=== PATIENT | female | born 1960 | race Caucasian/White ===

== ENCOUNTER 2020-07-05 16:35 | Emergency (ER) | payer OTHER ==
[~2020-07-05] VITALS: Ht 162.6 cm; Wt 70.3 kg
[2020-07-05] MEDS ORDERED: TOPROL XL100 MG PO ×2 (16:52→18:11)
[2020-07-05] MEDS ORDERED: LEVO-T25 MCG PO (16:52)
[2020-07-05] MEDS ORDERED: ASA81BEC PO (16:52)
[2020-07-05 17:21] LABS: ABSOLUTE EOSINOPHILS 0.2 thou/uL (0.0-0.7); ABSOLUTE LYMPHOCYTES 2.5 thou/uL (0.8-5.3); ABSOLUTE MONOCYTES 0.6 thou/uL (0.0-1.2); ABSOLUTE NEUTROPHILS 1.9 thou/uL (1.6-8.1); BASOPHILS 0.6 %; EOSINOPHILS 3.1 %; HEMATOCRIT 41.4 % (37.0-47.0); HEMOGLOBIN 14.4 gm/dL (12.0-15.0); LYMPHOCYTES 47.6 %; MCH 30.6 pg (26.0-34.0); MCHC 34.7 g/dL (28.0-37.0); MONOCYTES 11.9 %; MPV 7.3 fl. (7.2-11.1); NUCLEATED RBCS 0 /100WBC; PLATELET COUNT* 221 thou/uL (150-400); POLYS 36.8 %; RBC 4.71 mil/uL (4.20-5.00); RDW-CV 12.7 % (10.5-14.5); WBC 5.3 thou/uL (4.0-11.0)
[2020-07-05 17:29] LABS: CREATININE 0.8 mg/dL (0.6-1.3); POTASSIUM 3.9 mmol/L (3.5-5.1)
[2020-07-05 17:31] LABS: URINE BILIRUBIN NEGATIVE (Negative); URINE BLOOD NEGATIVE (Negative); URINE CLARITY CLEAR; URINE COLOR YELLOW; URINE GLUCOSE-RANDOM NEGATIVE (Negative); URINE KETONES NEGATIVE (Negative); URINE LEUKOCYTES NEGATIVE (Negative); URINE NITRITE NEGATIVE (Negative); URINE PROTEIN NEGATIVE (Negative); URINE UROBILINOGEN 0.2 E.U./dl (0.2-1.0)
[2020-07-05 17:40] LABS: ALBUMIN 3.8 g/dL (3.4-5.0); MAGNESIUM 2.1 mg/dL (1.8-2.4); TOTAL BILIRUBIN 0.5 mg/dL (<0.1-1.0); TOTAL PROTEIN 7.4 g/dL (6.4-8.2)
[2020-07-05] MEDS ORDERED: LEVOTHYROXINE25 MC1 PO (18:11)
[2020-07-05 18:28] VITALS: BP 171/90
--- NOTE | 2020-07-06 08:53 | EKG ---
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
== END 2020-07-05 18:28 | disposition home or self-care (01) ==
LOC: M.ERS 16:35
PROVIDERS: Emergency Medicine
DX: I10 Essential (primary) hypertension (principal); F41.9 Anxiety disorder, unspecified; Z91.14 Patient's other noncompliance with medication regimen; Z79.899 Other long term (current) drug therapy; Z79.82 Long term (current) use of aspirin; Z98.890 Other specified postprocedural states; Z90.710 Acquired absence of both cervix and uterus

== ENCOUNTER → 2020-08-29 | Outpatient (CLI) | payer OTHER ==
[~2020-08-29] MED LIST: ASA81BEC PO; LEVO-T25 MCG PO; LEVOTHYROXINE25 MC1 PO; TOPROL XL100 MG PO
== END ==
LOC: M.RAD 09:18
PROVIDERS: ATTEND Nurse Practitioner Family
DX: M17.11 Unilateral primary osteoarthritis, right knee (principal); M76.9 Unspecified enthesopathy, lower limb, excluding foot

== ENCOUNTER → 2020-09-13 | Outpatient (CLI) | payer OTHER | LOC: M.MRI 06:34 | PROVIDERS: ATTEND Nurse Practitioner Family | DX: Z12.31 Encounter for screening mammogram for malignant neoplasm of breast (principal); M79.671 Pain in right foot ==